=== PATIENT | male | born 1980 | race Caucasian/White ===

== ENCOUNTER 2018-05-31 18:54 | Emergency (ER) | payer SELFPAY ==
[~2018-05-31] VITALS: Ht 182.9 cm; Wt 80.7 kg
[2018-05-31 19:03] VITALS: BP_SYST 148
[2018-05-31] MEDS ORDERED: IBUPROFEN 800 MG TABLET PO ONE (20:45)
[2018-05-31 21:15] VITALS: BP_SYST 144
== END 2018-05-31 21:15 | disposition home or self-care (01) ==
LOC: SED 18:54
DX: S43.402A Unspecified sprain of left shoulder joint, initial encounter (principal); R03.0 Elevated blood-pressure reading, without diagnosis of hypertension; X58.XXXA Exposure to other specified factors, initial encounter; Y93.11 Activity, swimming; Y92.832 Beach as the place of occurrence of the external cause; Y99.8 Other external cause status
CPT/HCPCS: 73030; 99284